=== PATIENT | female | born 1935 | race Two or more races ===

== ENCOUNTER 2019-03-11 14:48 | Inpatient (IN) | payer OTHER ==
[~2019-03-11] VITALS: Ht 154.9 cm; Wt 56.2 kg
[2019-03-18] MEDS ORDERED: COZAAR50 MG PO (12:24)
[2019-03-18] MEDS ORDERED: SINGULAIR10 MG PO (12:24)
[2019-03-18] MEDS ORDERED: ALBUTEROL IH (12:25)
[2019-03-18] MEDS ORDERED: BUDESONIDE0.25 MG/2 (12:26)
[2019-03-18] MEDS ORDERED: ADVAIR HFA 230/12 GM IH (12:27)
[2019-03-29] MEDS ORDERED: PROVENTIL HFA6.7 GM (07:59)
== END 2019-03-29 11:48 | disposition home or self-care (01) | DRG 741 ==
LOC: O/R 03-28 06:20 → OB/GYN 03-28 06:20 → SURG 03-28 09:15 → OB/GYN 03-28 12:44
PROVIDERS: ADMIT Obstetrics & Gynecology Gynecologic Oncology
PROC: 0UT24ZZ Resection of Bilateral Ovaries, Percutaneous Endoscopic Approach (ICD-10-PCS; 2019-03-28)
PROC: 07BC4ZX Excision of Pelvis Lymphatic, Percutaneous Endoscopic Approach, Diagnostic (ICD-10-PCS; 2019-03-28)
PROC: 0UT94ZZ Resection of Uterus, Percutaneous Endoscopic Approach (ICD-10-PCS; principal; 2019-03-28 12:30)
PROC: 0UT74ZZ Resection of Bilateral Fallopian Tubes, Percutaneous Endoscopic Approach (ICD-10-PCS; 2019-03-28 12:30)
DX: C54.1 Malignant neoplasm of endometrium (principal); I10 Essential (primary) hypertension